=== PATIENT | female | born 1960 | race Caucasian/White ===

== ENCOUNTER 2018-04-19 17:54 | Emergency (ER) | payer SELFPAY ==
[~2018-04-19] VITALS: Ht 149.9 cm; Wt 47.4 kg
[~2018-04-19 17:54] MED LIST: IBUP-40
[2018-04-19 17:58] VITALS: Ht 149.9 cm; Wt 47.4 kg
== END 2018-04-19 21:02 | disposition left against medical advice (07) ==
LOC: E/R 17:54
DX: Z53.21 Procedure and treatment not carried out due to patient leaving prior to being seen by health care provider (principal)